=== PATIENT | male | born 1995 | race Caucasian/White ===

== ENCOUNTER 2017-06-19 13:48 | Emergency (ER) | payer BC, OTHER ==
--- NOTE | 2017-06-19 15:32 | UC ---
Throat Pain/Nasal Sanket HPI - HPI Summary HPI Summary: 21 yo WM c/o fevers associated with sore throat and labial sores x 3 days, started out with URI sx with nasal congestion which since resolved but pt has whitish tongue and labial sores noted since yesterday - History of Current Complaint Chief Complaint: UCGeneralIllness Stated Complaint: FEVER Time Seen by Provider: 06/19/17 15:17 Hx Obtained From: Patient, Family/Equip Maint Eng Severity: Severe Pain Intensity: 7 - Allergies/Home Medications Allergies/Adverse Reactions: Allergies Allergy/AdvReac Type Severity Reaction Status Date / Time No Known Allergies Allergy Verified 06/19/17 14:58 Home Medications: Home Medications Acetaminophen [Pain Relief] 500 mg PO 06/19/17 [History] Ibuprofen 400 mg PO 06/19/17 [History] PMH/Surg Hx/FS Hx/Imm Hx - Additional Past Medical History Additional PMH: none - Surgical History Surgical History: Yes Surgery Procedure, Year, and Place: adenoids removed 2004 - Social History Alcohol Use: Weekly Substance Use Type: None Smoking Status (MU): Never Smoked Tobacco Type: Smokeless Tobacco Review of Systems Constitutional: Fever, Chills Skin: Other - see HPI Eyes: Negative ENT: Negative Respiratory: Negative Cardiovascular: Negative Gastrointestinal: Negative Genitourinary: Negative Motor: Negative Neurovascular: Negative Musculoskeletal: Negative Neurological: Negative Psychological: Negative All Other Systems Reviewed And Are Negative: Yes Physical Exam Triage Information Reviewed: Yes Appearance: Ill-Appearing Vital Signs: Initial Vital Signs Temp 36.8 C 06/19/17 14:52 Pulse 85 06/19/17 14:52 Resp 18 06/19/17 14:52 BP 117/80 06/19/17 14:52 Pulse Ox 97 06/19/17 14:52 Eye Exam: Normal ENT: Positive: Pharyngeal erythema, TMs normal, Tonsillar swelling, Tonsillar exudate Dental Exam: Normal Dental: Positive: Cervical Lymphadenopathy - 3+, Other: - labial sores and thrush c/w herpangina Neck exam: Normal Neck: Positive: 1 Respiratory Exam: Normal Cardiovascular Exam: Normal Abdominal Exam: Normal Musculoskeletal Exam: Normal Neurological Exam: Normal Psychological Exam: Normal Skin Exam: Normal Throat Pain/Nasal Course/Dx - Course Course Of Treatment: rapid strep negative but will tx for bacterial exudative pharyngitis - Differential Dx/Diagnosis Differential Diagnosis/HQI/PQRI: Mononucleosis, Peritonsillar Abscess, Pharyngitis, Tonsillitis, URI Provider Diagnoses: Bacterial pharyngitis (exudative). Herpangina Discharge - Discharge Plan Condition: Stable Disposition: HOME Prescriptions: Clindamycin HCl 300 mg PO Q6HR 10 Days #30 capsule Nystatin SUSPENSION ORAL SYR* 100,000 units PO BID 10 Days #1 btl Patient Education Materials: Pharyngitis (ED), Hand, Foot, and Mouth Disease ( ED) Forms: *Work Release Referrals: No Primary Care Phys,NOPCP [Primary Care Provider] -
[2017-06-19] MEDS ORDERED: Clindamycin 600 MG IVPREMIX(* 600 MG/50 ML SDV IV ONE (15:42)
[2017-06-19] MEDS ORDERED: cefTRIAXone VIAL(*) 1,000 MG VIAL ONE (15:47)
[2017-06-19] MEDS ORDERED: cefTRIAXone(*) 1 GM in NS 0.9% 50 ML* 50 ML IVPB ONE (15:48)
[2017-06-19] MEDS ORDERED: cefTRIAXone VIAL(*) 1,000 MG VIAL IVPB ONE (15:55)
[2017-06-19 16:42] VITALS: BP 133/73
== END 2017-06-19 16:43 | disposition home or self-care (01) ==
LOC: UCEAST 13:48
DX: J02.9 Acute pharyngitis, unspecified (principal); B08.5 Enteroviral vesicular pharyngitis; R50.9 Fever, unspecified
CPT/HCPCS: 87070; 87651; 96365; 99202; G0463; J0696